=== PATIENT | male | born 1960 | race Caucasian/White ===

== ENCOUNTER → 2022-06-09 10:11 | Outpatient (BNVA) | payer OTHER, SELFPAY | PROVIDERS: PCP Family Medicine; Visit Provider Family Medicine | DX: Z00.00 Encounter for general adult medical examination without abnormal findings (principal) | CPT/HCPCS: 80053; 80061 ==

== ENCOUNTER → 2022-06-18 14:34 | Outpatient (BNVA) | payer OTHER, SELFPAY | PROVIDERS: PCP Family Medicine; Visit Provider Family Medicine | DX: L98.9 Disorder of the skin and subcutaneous tissue, unspecified (principal) | CPT/HCPCS: 88304 ==

== ENCOUNTER → 2024-11-23 10:54 | Outpatient (BNVA) | payer SELFPAY | PROVIDERS: PCP Family Medicine; Visit Provider Family Medicine | DX: Z00.00 Encounter for general adult medical examination without abnormal findings (principal) | CPT/HCPCS: 80053; 80061; 84153; 85025 ==

== ENCOUNTER 2025-01-11 07:27 | Day surgery (SDC) | payer OTHER, SELFPAY ==
[2025-01-11 07:40] VITALS: BP 139/96; PULSE 53; RESP 18; TEMP 36.6; O2SAT 97; BMI 23.6
--- NOTE | 2025-01-11 07:45 | P.HPUD_ITS ---
Surgery/Procedure H&P Update DATE OF PROCEDURE: January 11, 2025 DATE H&P PERFORMED: 12/27/24 H&P UPDATE INFORMATION: I have reviewed H&P completed within last 30 days, I have examined patient prior to procedure, No changes to prior documentation, H&P is in [facility] EMR on date indicated and Risks and benefits of the procedure reviewed PLANNED PROCEDURE: Operation Date: 01/11/25 09:00 Proposed Procedures p Colonoscopy [id number] [id number] Z12.11(Not Applicable) - Bobby Connors MD
--- NOTE | 2025-01-11 08:10 | ANES.PREANE2 ---
Pre-Anesthetic Assessment Height/Weight: Height 1.78 m Weight 74.843 kg Temp Pulse Resp BP Pulse Ox O2 Del Method 97.8 F 53 L 18 139/96 97 Room Air 01/11/25 07:40 01/11/25 07:40 01/11/25 07:40 01/11/25 07:40 01/11/25 07:40 01/11/25 07:40 Operation Date: 01/11/25 09:00 Proposed Procedures p Colonoscopy [id number] [id number] Z12.11(Not Applicable) - Bobby Connors MD Familial anesthetic complications: None Was Beta Ruslan taken within 24 hours: N/A Was Clonidine taken within 24 hours: N/A Last intake: Intake Last Liquid Date 01/10/25 Last Liquid Time 20:30 Last Solid Date 01/09/25 Last Solid Time 18:00 Social No alcohol and No tobacco Exam alert, oriented x 3, clear to auscultation bilaterally and regular rate & rhythm Airway Mallampati: Class II Anesthetic Plan ASA status: 1 Anesthesia: MAC Risk of > 500 ml blood loss (7ml/kg in children): No Medications/Allergies Home Medications ?Medication ?Instructions ?Recorded ?Confirmed ?Last Taken ?Type No Known Home Medications 01/11/25 01/11/25 Unknown History Allergies Allergy/AdvReac Type Severity Reaction Status Date / Time penicillin V Allergy Intermediate rash Verified 01/08/25 10:21 Current Medications Generic Name Dose Route Start Last Admin Trade Name Freq PRN Reason Stop Dose Admin Sodium Chloride 1,000 mls @ 15 mls/hr 01/11/25 07:35 01/11/25 07:50 Sodium Chloride 0.9% IV 01/12/25 07:34 15 mls/hr .Q24H PRN Administration COLONOSCOPY FLUIDS PFSH Anesthesia Family History (Updated 12/27/24 @ 08:53 by IVETTE Tidwell) Mother Diabetes Father Stroke Social History Smoking and tobacco/nicotine status: never used tobacco/nicotine
[2025-01-11 09:55] VITALS: BP 122/79; PULSE 59; RESP 18; TEMP 36.6; O2SAT 97
[2025-01-11 10:08] VITALS: BP 128/84; PULSE 54; RESP 18; O2SAT 99
[2025-01-11 10:18] VITALS: BP 144/75; PULSE 57; RESP 18; O2SAT 98
--- NOTE | 2025-01-11 10:30 | ANE.PACU2 ---
Inpatient post-anesthesia follow up: Airway intact: Yes Vital signs: Temperature 97.9 F Pulse Rate 57 Respiratory Rate 18 Blood Pressure 144/75 Pulse Oximetry 98 Oxygen Delivery Me thod Room Air Oxygen Flow Rate Fraction of Inspir ed Oxygen Hydration adequate: Yes Nausea and vomiting: No Pain level: 1 Mental status: Baseline
== END 2025-01-11 10:30 | disposition home or self-care (01) ==
PROVIDERS: PCP Family Medicine; Visit Provider Surgery
PROC: 0DJD8ZZ Inspection of Lower Intestinal Tract, Via Natural or Artificial Opening Endoscopic (ICD-10-PCS; CPT 45378; principal; 2025-01-11 09:00)
DX: Z12.11 Encounter for screening for malignant neoplasm of colon (principal); K64.8 Other hemorrhoids
CPT/HCPCS: 45378; J2704; J7030